=== PATIENT | male | born 1960 | race Caucasian/White ===

== ENCOUNTER 2023-04-10 12:37 | Outpatient (AMB) | payer OTHER, SELFPAY ==
--- NOTE | 2023-04-10 12:45 | A.OFFVIS_ITS ---
Intake Vital Signs 04/10/23 12:47 Height 5 ft 5 in Weight 172 lb BMI 28.6 BP 142/74 H Blood Pressure Location Rt brachial Position Sitting Pulse 68 Pulse Source Pulse Oximeter Pulse Oximetry (%) 95 Oxygen Delivery Method Room Air Intake Visit Reasons: ENP-h/o movement disorder/shaking/tremors - Conf Intake Note: Patient presents for movement disorder. Allergies No Known Allergies Allergy (Verified 04/10/23 12:47) HPI HPI Comments History of Present Illness Details 63 y/o male patient presents for new in- person visit for evaluation body shakiness and tremor. Pt reports that the whole body shaking and tremor started 2 days after the first Covid vaccine, he had Moderna. And the tremor got worse after the second dose of Moderna. His hands and body started cramping, and then having tremor. Pt states that his tremor is intermittent, and mostly his bilateral hands and head tremor. The tremor has been improved a little bit, still can happen anytime. No particular time or triggers tremor. He still can have hands contractions when he works, and legs cramping, too. Pt thought he had stroke, but it was not. Hx of TIA in 1997, had left side weakness. He tried magnesium but it did not help for hands and legs cramping. His described the tremor kind of overexaggerated movement. Denies family hx of tremor. Denies difficulty ADLs. Denies difficulty walking. Denies neck pain. Denies difficulty eating or swallowing. He reports drools sometimes, and it happens more than before. Has hx of colon cancer s/p illeostomy and vitamin B level was always low. He smokes mariujuana, and it helps him relaxed and his tremor calm down. [facility] Surgical History (Updated 04/10/23 @ 12:49 by JULIETTE Cordero) History of colon resection Hx of colonoscopy Family History (Updated 04/10/23 @ 12:49 by JULIETTE Cordero) Father Heart disease Mother Cancer Social History (Updated 04/10/23 @ 12:50 by JULIETTE Cordero) Patient Tobacco Use Status: Former Tobacco user Use of substances other than those prescribed or required for medical reasons: Yes Substance Use Type: Marijuana Review of Systems Const All systems reviewed & are unremarkable except as noted in HPI and below Physical Exam Vital Signs: Last Vital Signs Pulse 68 04/10/23 12:47 BP 142/74 H 04/10/23 12:47 Pulse Ox 95 04/10/23 12:47 Oxygen Delivery Method Room Air 04/10/23 12:47 BMI result Body Mass Index 28.6 Const General: cooperative Nutritional Appearance: overweight Orientation/consciousness: patient oriented x3 Neck Neck: Yes full ROM and Yes supple Resp Effort & Inspection: normal respiratory effort and able to speak in complete sentences Neuro Other: Good facial expression. No hands or head tremor at this visit. General: patient oriented x3 and gait normal Cranial nerves: Yes CN's II-XII intact bilaterally Cognition (Neuro): normal cognition Motor exam (neuro): 5/5 motor strength present throughout, Pronator motor function not present and no tremor noted Deep tendon reflexes (DTR's): Right brachioradialis reflex intensity grade: 2+, Left brachioradialis reflex intensity grade: 2+, Right patellar reflex intensity grade: 2+ and Left patellar reflex intensity grade: 2+ Assessment & Plan Assessment & Plan (1) Tremor: Comment: Reported bilateral hands and head tremor after COVID Code(s): R25.1 - Tremor, unspecified (2) Cramping of hands: Code(s): R25.2 - Cramp and spasm (3) Leg cramping: Code(s): R25.2 - Cramp and spasm Plan No head or hands tremor noted today. Pt states that the tremor is intermittent, it can happen randomly. Advised patient to monitor the tremor, and call if it gets worsening. May continue to take magnesium for hands and legs cramping. Coding Level of Care Code New Pt Level 4 (52492) Diagnoses Tremor R25.1 Cramping of hands R25.2 Leg cramping R25.2
[2023-04-10 12:47] VITALS: BP 142/74; PULSE 68; O2SAT 95; BMI 28.6
== END 2023-04-10 13:32 | disposition home or self-care (01) ==
PROVIDERS: PCP Student in an Organized Health Care Education/Training Program; Visit Provider Nurse Practitioner Family
DX: R25.1 Tremor, unspecified (principal); R25.2 Cramp and spasm
CPT/HCPCS: 99204

== ENCOUNTER → 2023-04-10 12:37 | Outpatient (BNVA) | payer OTHER, SELFPAY | PROVIDERS: PCP Student in an Organized Health Care Education/Training Program; Visit Provider Nurse Practitioner Family | DX: R25.1 Tremor, unspecified (principal); R25.2 Cramp and spasm | CPT/HCPCS: 99202 ==